=== PATIENT | male | born 2000 | race African-American/Black ===

== ENCOUNTER 2020-05-27 20:22 | Emergency (ER) | payer MEDICAID ==
[~2020-05-27] VITALS: Ht 175.3 cm; Wt 65.8 kg
[2020-05-27] MEDS ORDERED: BENADRYL ALLERG25 M1 PO (20:38)
[2020-05-27] MEDS ORDERED: CLARITIN-D 121 EAC1 ORAL (20:38)
[2020-05-27 20:40] VITALS: BP 104/56
--- NOTE | 2020-05-27 20:40 | NUR ---
ER DISCHARGE NOTE: Patient is cleared to be discharged per ERMD, pt is aox4, on room air, with stable vital signs. pt was given dc and prescription instructions, pt was able to verbalize understanding, pt id band removed without complications. pt is able to ambulate with steady gait. pt took all belongings.
--- NOTE | 2020-05-27 20:42 | Emergency Room Report ---
History of Present Illness General Chief Complaint: Allergies Source: Patient Present Illness HPI Disclaimer: Please note that this report is being documented using eTutor technology. This can lead to erroneous entry secondary to incorrect interpretation by the dictating instrument. HPI: This is a 19-year-old male with no reported medical history presenting for evaluation of nasal congestion and sore throat. Symptoms began this afternoon. He reports rhinorrhea, nasal congestion and mild postnasal drip with mild sore throat. Still able to eat and drink at baseline. Phonation normal. Denies stridor wheezing cough, fever, chills, nausea, vomiting, diarrhea, rash. No known sick contacts. He states he has a history of seasonal allergies and whenever the seasons change this will happen to him. He denies significant headache just feels pressure at the bridge of his nose. Denies ocular pain, eye redness, purulence. PMH: Seasonal allergies PSH: Denies Allergies: Seasonal allergies Social Hx: Occasional THC Allergies: Coded Allergies: No Known Allergies (Unverified , 05/27/20) COVID-19 Screening Contact w/high risk pt: No Experienced COVID-19 symptoms?: Yes COVID-19 Testing performed PARTY HOST: No Nursing Documentation-PMH Past Medical History: No Stated History Review of Systems All Other Systems: negative except mentioned in HPI Physical Exam Vital Signs Date Time Temp Pulse Resp B/P (MAP) Pulse Ox O2 Delivery O2 Flow Rate FiO2 05/27/20 20:22 97.5 93 18 104/56 (72) 99 Room Air General: Awake and alert, no acute distress HEENT: NC/AT. EOMI. PERRLA. No scleral injection. No lid edema. Uvula midline. Tonsils 1+. No exudate. Pharynx is erythematous. Normal phonation, no stridor, tolerating secretions. No submandibular lymphadenopathy. Mild tenderness palpation over the frontal sinuses but none over the maxillary. Resp: Normal work of breathing Skin: Intact. No abrasions, laceration or rash over the exposed skin MSK: Normal tone and bulk. Moving all extremities. No obvious deformity. Neuro: Awake and alert. Mentating appropriately Medical Decision Making Diagnostic Impression: Primary Impression: Rhinitis ER Course Is a 19-year-old male history of seasonal allergies presenting for evaluation of nasal congestion and sore throat of 1 day duration. Differential includes but not limited to pharyngitis, rhinitis, rhinosinusitis, tonsillitis, viral syndrome, URI among others. He is well-appearing with stable vital signs. He is in no distress. Most likely, this is an allergic rhinitis and the patient will be treated with decongestant and Benadryl. Do not believe he requires antibiotics at this time. We will follow-up with PMD or return with new or worsening symptoms. Do not believe he requires emergent labs or imaging at this time. Patient understands and agrees with this treatment plan. Last Vital Signs Date Time Temp Pulse Resp B/P (MAP) Pulse Ox O2 Delivery O2 Flow Rate FiO2 05/27/20 20:22 97.5 93 18 104/56 (72) 99 Room Air Disposition: HOME, SELF-CARE Condition: Stable Scripts Diphenhydramine Hcl (BENADRYL ALLERGY) 25 Mg Tablet 25 MG PO QID for 5 Days, #20 TAB Prov: Jasvir Aranda MD 05/27/20 Loratadine/Pseudoephedrine (CLARITIN-D 12 HOUR TABLET) 1 Each Tab.er.12h 1 TAB ORAL EVERY 12 HOURS for 10 Days, #20 TAB Prov: Jasvir Aranda MD 05/27/20 Patient Instructions: Allergies Additional Instructions: Please follow-up with your primary care doctor in the next 1 to 3 days to discuss this emergency department visit and for reevaluation. If you have any new or worsening symptoms please return to the emergency department for reevaluation. Please note that this report is being documented using DRAGON technology. This can lead to erroneous entry secondary to incorrect interpretation by the dictating instrument. Jasvir Aranda MD May 27, 2020 20:42
[2020-05-27 20:43] VITALS: BP 104/56
== END 2020-05-27 20:55 | disposition home or self-care (01) ==
LOC: EMR 20:55
DX: J31.0 Chronic rhinitis (principal)
CPT/HCPCS: 99282

== ENCOUNTER 2020-11-01 12:41 | Emergency (ER) | payer MEDICAID ==
[~2020-11-01] VITALS: Ht 175.3 cm; Wt 61.2 kg
[~2020-11-01 12:41] MED LIST: BENADRYL ALLERG25 M1 PO; CLARITIN-D 121 EAC1 ORAL
--- NOTE | 2020-11-01 12:53 | NUR ---
pt arrives to ER with complaint so right sided dental abscess.
[2020-11-01 12:54] VITALS: BP 107/67
--- NOTE | 2020-11-01 13:03 | Emergency Room Report ---
History of Present Illness General Chief Complaint: Skin Rash/Abscess Source: Patient Present Illness HPI The patient presents with swelling in his right lower jaw and face. His mom told him he had a infection of his tooth. He complains about 10/10 at this time pressure and aching. There is no drainage. He has multiple cavities. He has never had this problem before. He denies fevers or chills. He is able to eat without difficulty. Patient denies Covid exposures. Allergies: Coded Allergies: No Known Allergies (Unverified , 05/27/20) COVID-19 Screening Contact w/high risk pt: No Experienced COVID-19 symptoms?: No COVID-19 Testing performed SUPER[employer]OR DISPLAY FAB[employer]ICATION: No COVID-19 Screening: Negative COVID-19 Patient History Past Medical History: none Social History: Reports: smoking Social History Narrative Drove himself here Reviewed Nursing Documentation: PMH: Agreed; PSxH: Agreed Nursing Documentation-PMH Hx Cardiac Problems: No Hx Hypertension: No Hx Pacemaker: No Hx Asthma: No Hx COPD: No Hx Diabetes: No Hx Cancer: No Hx Gastrointestinal Problems: No Hx Dialysis: No History Of Psychiatric Problem: No Hx Neurological Problems: No Hx Cerebrovascular Accident: No Hx Seizures: No Review of Systems Constitutional: Reports: see HPI ENT: Reports: see HPI Respiratory: Denies: cough Gastrointestinal: Denies: nausea, vomiting Skin: Denies: rash Neurological: Denies: headache Physical Exam Vital Signs Date Time Temp Pulse Resp B/P (MAP) Pulse Ox O2 Delivery O2 Flow Rate FiO2 11/01/20 12:49 98.8 84 18 107/67 (80) 95 Room Air Sp02 EP Interpretation: reviewed, normal General Appearance: well appearing, no apparent distress, GCS 15, non-toxic Head: normocephalic Eyes: bilateral eye normal inspection, bilateral eye PERRL, bilateral eye EOMI ENT: moist mucus membranes, other - Multiple caries, area of swelling without fluctuance right lower jaw by first molar. No drainage. Neck: normal inspection, full range of motion Cardiovascular #1: regular rate, rhythm Cardiovascular #2: 2+ radial (R) Gastrointestinal: normal inspection Musculoskeletal: gait/station normal Neurologic: alert, grossly normal Psychiatric: mood/affect normal Skin: normal color, no rash, warm/dry, other - No erythema over the area of swelling Medical Decision Making Diagnostic Impression: Primary Impression: Dental abscess ER Course Patient presents with swelling and pain right lower jaw. Differential includes dental abscess, gum abscess, facial abscess amongst others. There is no fluctuance at this time and incision and drainage or aspiration is not ind icated. However antibiotics are indicated along with pain control. Discussed findings and treatment plan with patient. Discussed the need for follow-up with a dentist. Patient stable for outpatient observation and treatment. Last Vital Signs Date Time Temp Pulse Resp B/P (MAP) Pulse Ox O2 Delivery O2 Flow Rate FiO2 11/01/20 12:54 98.8 18 107/67 95 Room Air 11/01/20 12:49 84 Status: improved Disposition: HOME, SELF-CARE Condition: Improved Scripts Acetaminophen With Codeine (T#3) (TYLENOL #3 TAB*) Y Tab 1 TAB ORAL Q8H PRN for For Pain, #10 TAB Prov: Bill Juarez MD 11/01/20 Amoxicillin (AMOXICILLIN) 500 Mg Tablet 500 MG PO TID, #21 TAB Prov: Bill Juarez MD 11/01/20 Bill Juarez MD Nov 01, 2020 13:03
[2020-11-01] MEDS ORDERED: AMOXICILLIN500 M1 PO (13:05)
[2020-11-01] MEDS ORDERED: ACETAMINOPHEN-1 EAC1 ORAL (13:05)
[2020-11-01] MEDS ORDERED: Acetaminophen 500mg (ES) tab ORAL ONE (13:15)
== END 2020-11-01 14:17 | disposition home or self-care (01) ==
LOC: EMR 13:24
DX: K04.7 Periapical abscess without sinus (principal); F17.200 Nicotine dependence, unspecified, uncomplicated
CPT/HCPCS: 99282